=== PATIENT | male | born 1960 | race Caucasian/White ===

== ENCOUNTER 2021-05-27 00:43 | Day surgery (SDC) | payer OTHER, SELFPAY ==
[2021-05-20 08:57] VITALS: BMI 22.8
[2021-05-27 08:55] VITALS: BP 111/82; PULSE 90; RESP 18; TEMP 37.2; O2SAT 99; BMI 22.6
--- NOTE | 2021-05-27 09:11 | P.PNAN_ITS ---
Anes - Initial Pre Proc Eval Procedure: Operation Date: 05/27/21 10:00 Proposed Procedures p Screening Colonoscopy - Edward Martin MD Date/Time: 05/27/21 09:11 Surgeon: Edward Martin MD Pre Op Diagnosis: neoplasm screening Patient Data Age: 60 Gender: M Height: 1.7 m Weight: 66 kg Allergies Allergy/AdvReac Type Severity Reaction Status Date / Time No Known Allergies Allergy Verified 05/27/21 09:10 Home Medications Medication Instructions Recorded Confirmed Type No Home Medications 03/28/21 05/27/21 History Patient hx anesthesia problems: none Family hx anesthesia problems: none Results Review: All pre-operative results and documents have been reviewed as part of the pre-operative evaluation. [facility] Past Medical History Medical History (Updated 04/28/21 @ 12:57 by Prasad Ballard MD) COVID-19 Hearing loss Family History Family History Father Diabetes mellitus Acute myocardial infarction Family history of premature coronary heart disease Sibling Family history of psoriasis Family history of premature coronary heart disease Mother Family history of rheumatoid arthritis Patient's mother is , Onset Age: 73 Other Family history of heart disease in male family member before age 55 Social History Social History Smoking status: Never smoker Alcohol intake: current Drinks per week: 6 Alcohol use details: on weekend 6 beers Substance use: never Substance use type: does not use Living arrangements: with family Spiritual care concerns: No Anes - Eval Final PreProcedure Day of Procedure 05/27/21 09:11 Patient weight: normal Heart: regular rate and rhythm Lungs: clear to auscultation Airway: Mallampati scale class II Neurological: alert and oriented Last oral intake: >/= 8 hours ASA classification: I Emergent: no Anesthetic plan: proceed Anesthesia type and monitoring: general GIVS and standard monitoring Results Review: All pre-operative results and documents have been reviewed as part of the pre-operative evaluation. Informed Consent: The patient's anesthetic plan and its attendant risks and benefits were discussed with the patient/family/POA. Questions were solicited and answers provided to the satisfaction of the patient/family/POA.
[2021-05-27] MEDS: LACTATED RINGERS 1,000 ML 150 ML IV CONT (09:22)
--- NOTE | 2021-05-27 10:00 | WPDGICN ---
Assessment and Plan Assessment and plan (1) Irritable bowel syndrome with diarrhea: Code(s): K58.0 - Irritable bowel syndrome with diarrhea Status: Acute Assessment and Plan: Patient gives a long history of irregular bowel habits. Suspect this could be irritable bowel syndrome. Although dietary intolerance cannot be excluded. Agree with a trial of limiting her avoiding caffeine. I would suggest fiber supplementation such as FiberCon or Metamucil on a daily basis. (2) Encounter for screening colonoscopy: Code(s): Z12.11 - Encounter for screening for malignant neoplasm of colon Status: Acute Assessment and Plan: Patient presents for screening colonoscopy as it appears is been since 2007 since last exam. There is a questionable history of colon polyps in the past that I cannot confirm. Further recommendations will be given after screening colonoscopy. GI Consult Note Consult date/time: 05/27/21 10:00 HPI: Delvin Alonso is a 60 year old male Presents for screening colonoscopy. Patient reports a long history of irregular bowel movements. He apparently has watery stools that her sometimes putting like and sometimes like string beans. He denies any bleeding. He states he has poor control. Apparently his poor control is more noticeable when traveling because of inability to get to a restroom quick enough. He states he drinks quite a bit of coffee. Altering the amount of coffee seems to have improved to a small degree but has not relieved his symptoms. He was referred for colonoscopy because it has been since 2007 since last exam. At which time he was found to have hemorrhoids. Patient does have a significant concern about underlying cancer. He denies any bleeding however. His family history is noncontributory. Review of Systems Review of Systems: All systems reviewed & are unremarkable except as noted in HPI and below [facility] Past Medical History Medical History (Updated 05/27/21 @ 10:01 by Edward Martin MD) COVID-19 Hearing loss Family History Family History Father Diabetes mellitus Acute myocardial infarction Family history of premature coronary heart disease Sibling Family history of psoriasis Family history of premature coronary heart disease Mother Family history of rheumatoid arthritis Patient's mother is , Onset Age: 73 Other Family history of heart disease in male family member before age 55 Social History Social History Smoking status: Never smoker Alcohol intake: current Drinks per week: 6 Alcohol use details: on weekend 6 beers Substance use: never Substance use type: does not use Living arrangements: with family Spiritual care concerns: No Meds Home Medications and Allergies Home Medications Medication Instructions Recorded Confirmed Type No Home Medications 03/28/21 05/27/21 History Allergies Allergy/AdvReac Type Severity Reaction Status Date / Time No Known Allergies Allergy Verified 05/27/21 09:10 Vital Signs Vital Signs - 24 hr 05/27/21 08:55 Temperature 98.9 F Pulse Rate 90 Respiratory Rate 18 Blood Pressure 111/82 Pulse Oximetry 99 Exam Narrative: Physical exam reveals patient to be alert. Vital signs stable. HEENT exam is unremarkable. Patient is anicteric. Lungs are clear to auscultation and to percussion. Heart is without murmur or extra sounds. Abdominal exam bowel sounds present soft nontender with no organomegaly. Digital external rectal exam normal.
[2021-05-27 10:39] VITALS: BP 102/71; PULSE 66; RESP 26; O2SAT 97
[2021-05-27 10:49] VITALS: BP 102/60; PULSE 67; RESP 26; O2SAT 99
[2021-05-27 10:59] VITALS: BP 112/73; PULSE 61; RESP 17; O2SAT 99
== END 2021-05-27 11:11 | disposition home or self-care (01) ==
PROVIDERS: PCP Family Medicine; Visit Provider Internal Medicine Gastroenterology
PROC: 0DJD8ZZ Inspection of Lower Intestinal Tract, Via Natural or Artificial Opening Endoscopic (ICD-10-PCS; CPT 45378; principal; 2021-05-27 10:00)
DX: Z12.11 Encounter for screening for malignant neoplasm of colon (principal); D12.4 Benign neoplasm of descending colon; R19.5 Other fecal abnormalities; K58.9 Irritable bowel syndrome, unspecified; K64.8 Other hemorrhoids; K58.0 Irritable bowel syndrome with diarrhea; Z86.16 Personal history of COVID-19; H91.90 Unspecified hearing loss, unspecified ear
CPT/HCPCS: 45385; 88305; J2704; J7120

== ENCOUNTER 2021-11-15 19:45 | Emergency (ER) | payer OTHER, SELFPAY ==
--- NOTE | ~2021-11-15 | CT_ITS ---
EXAMINATION: CT abdomen pelvis wo con DATE: 11/15/2021 20:51 INDICATION: left flank pain, n/v TECHNIQUE: Computed tomography (CT) of the abdomen and pelvis was performed without intravenous contr ast. Automated exposure control and iterative reconstruction technique were employed. The dose-length product was 252.41 mGy-cm. COMPARISON: None FINDINGS: Lower thorax: 3 mm left lower lobe pulmonary nodule. Bibasilar atelectasis. Liver: There is Biliary/Gallbladder: Gallbladder is normal. No bile duct dilation. Pancreas: No mass or duct dilation. Spleen: Splenosis. Adrenals:No mass. Kidneys: No mass, stone, or hydronephrosis. GI tract: No small or large bowel dilation. Normal appendix. Mesentery/Peritoneum: No ascites, mass, or free air. Retroperitoneum: No mass. Pelvis: Pelvic organs are within normal limits. Soft Tissues: Soft tissues and body wall unremarkable. Bones: No acute osseous finding. IMPRESSION: No acute abdominopelvic process. 3 mm left lower lobe pulmonary nodule. If the patient is low risk fo r lung cancer, no follow-up is needed. If the patient is high risk (i.e., history of smoking or asbes tos or radiation exposure), follow-up noncontrast low-dose chest CT is recommended at 12 months. Reviewed, dictated and finalized at location K. IMPRESSION: No acute abdominopelvic process. 3 mm left lower lobe pulmonary nodule. If the patient is low risk for lung cancer, no follow-up is needed. If the patient is high risk (i.e., history of smoking or asbestos or radiation exposure), follow- up noncontrast low-dose chest CT is recommended at 12 months.
--- NOTE | ~2021-11-15 | CT_ITS ---
EXAMINATION: CTA chest abdomen pelvis DATE: 11/16/2021 08:14 CDT INDICATION: Intractable back pain. Concern for dissection. TECHNIQUE: Computed tomography (CT) of the chest, abdomen, and pelvis was performed with 100 cc Omnip aque 300 intravenous contrast. The dose-length product was 358.84 mGy-cm. Automated exposure control and iterative reconstruction technique were employed. COMPARISON: CT dated 11/15/2021 FINDINGS: CHEST CT: There is an aberrant right subclavian artery. Study is technically adequate without evidence for pulm onary embolism. Heart size normal. No significant pleural or pericardial effusion. No endobronchial l esions. No evidence for aortic aneurysm or dissection. There is a 5.5 mm perifissural nodule on the l eft, image 51, likely benign lymph node. No endobronchial lesions. Dependent atelectasis. No focal ai rspace consolidation. No pneumothorax. ABDOMEN/PELVIS CT: No evidence for aortic aneurysm or dissection. There is stenosis of the celiac trunk. The SMA and maria de jesus al arteries are widely patent. The liver, spleen, pancreas, adrenal glands and kidneys are unremarkab le. There is a 4 cm mass medial to the spleen which is isodense to the spleen, likely an accessory sp lenule. There is a second mass isodense to the spleen just superior to the left kidney along the less er curvature of the stomach, also likely an accessory splenule. Gallbladder is present. No free air o r free fluid. No acute osseous abnormality. IMPRESSION: 1. 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 Correlate for possi ble median arcuate syndrome. 2: Left perifissural nodule measuring 5.5 mm, likely benign. Follow-up low dose CT chest in 12 months recommended. 3: Reviewed, dictated and finalized at location B. IMPRESSION: 1. 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 Correlate for possible median arcuate syndrome. 2: Left perifissural nodule measuring 5.5 mm, likely benign. Follow-up low dose CT chest in 12 months recommended. 3:
[2021-11-15 20:11] VITALS: BP 145/77; PULSE 64; RESP 18; TEMP 36.6; O2SAT 100
--- NOTE | 2021-11-15 20:31 | ED.ABDPAIN ---
HPI - Abdominal Pain General Chief Complaint: Abdominal Pain Stated Complaint: left flank pain Time Seen by Provider: 11/15/21 20:22 History of Present Illness HPI narrative: Patient is a 61-year-old male here for evaluation of left flank pain today. Patient states the pain is intermittent in nature, is severe, and makes it difficult to find a comfortable position. Most comfortable position is leaning forward. States that he was at work when the pain came on, and it came on after eating. Denies history of previous similar pain. Patient additionally had 2 episodes of nausea and vomiting nonbloody/nonbilious emesis. No fevers, chills, abdominal pain, constipation. Patient states that he has chronic diarrhea that he has had multiple colonoscopies in the past for. Related Data Allergies Allergy/AdvReac Type Severity Reaction Status Date / Time No Known Allergies Allergy Verified 11/15/21 20:43 Review of Systems Review of Systems: Gen.: Denies fevers or chills Eyes: Denies eye pain or visual change ENT: Denies congestion Respiratory: Denies shortness of breath or cough CV: Denies chest pain or palpitations GI: Reports nausea and vomiting denies burning, urgency, frequency or hematuria Musculoskeletal: Reports back pain Neuro: Denies numbness, tingling, weakness or focal weakness Skin: Denies rash Except as documented, all other systems reviewed and negative [facility] Past Medical History Medical History COVID-19 Hearing loss Family History Family History Father Diabetes mellitus Acute myocardial infarction Family history of premature coronary heart disease Sibling Family history of psoriasis Family history of premature coronary heart disease Mother Family history of rheumatoid arthritis Patient's mother is , Onset Age: 73 Other Family history of heart disease in male family member before age 55 Social History Social History Smoking status: Never smoker Alcohol intake: current Drinks per week: 6 Alcohol use details: on weekend 6 beers Substance use: never Substance use type: does not use Spiritual care concerns: No Exam Narrative: APPEARANCE: No acute distress, nontoxic, resting in bed EYES: EOMI HEENT: Normocephalic, atraumatic, OMM RESPIRATORY: No respiratory distress Clear to auscultation bilaterally with no rhonchi wheezing or rales. CARDIOVASCULAR: Regular rate and rhythm without murmurs rubs or gallops. ABDOMINAL: Soft, nontender, nondistended, no rebound or guarding MUSCULOSKELETAl: No CVA tenderness. Moves all extremities. No clubbing, cyanosis or edema. NEURO: Awake and alert. Following commands, speech normal, no focal deficits SKIN: Warm, dry. No rashes lesions or abrasions PSYCHIATRIC: Normal affect/mood Course Vital Signs Vital signs: Vital Signs Temperature 97.8 F 11/15/21 20:11 Pulse Rate 64 11/15/21 20:11 Respiratory Rate 18 11/15/21 20:11 Blood Pressure 145/77 H 11/15/21 20:11 Pulse Oximetry 100 11/15/21 20:11 Oxygen Delivery Room Air 11/15/21 20:11 Temperature 97.8 F 11/15/21 20:11 Pulse Rate 64 11/16/21 01:15 Respiratory Rate 18 11/16/21 01:15 Blood Pressure 124/74 11/16/21 01:15 Pulse Oximetry 100 11/16/21 01:15 Oxygen Delivery Room Air 11/15/21 20:11 MDM - Abdominal Pain MDM Narrative Medical decision making narrative: Patient is a 61-year-old male here for evaluation of left sided flank pain, nausea and vomiting today. Patient initially hypertensive, likely due to pain, vital signs normal at time of discharge. Exam without CVA tenderness. Initial differential diagnosis include pyelonephritis, nephrolithiasis, gastroenteritis, low back sprain or strain. Patient's pain was refractory to Toradol, lidocaine patches and cycloben
[2021-11-15] MEDS: ONDANSETRON INJ 4 MG/2 ML VIAL IV PUSH (20:43)
[2021-11-15] MEDS: KETOROLAC 15 MG/ML VIAL (*BKC) IV PUSH (20:43)
[2021-11-15 20:47] LABS: Appearance Urine Clear (Clear); Bilirubin Urine Negative (Negative); Blood Urine Negative (Negative); Color Urine Yellow (Yellow); Glucose Urine UA Negative (Negative); Ketones Urine 1+ mg/dL (Negative); Leukocyte Esterase Ur Negative LEU/UL (Negative); Nitrate Urine Negative (Negative); Protein Urine Trace mg/dL (Negative); Specific Grav Ur >= 1.030 (1.001-1.035); Urobilinogen Urine 0.2 mg/dL (<2.0); pH Urine 5.5 (5.0-9.0)
[2021-11-15 20:47] LABS: Basophils Percent Auto 0.6 % (0.2-1.2); Eosinophils Percent Auto 0.4 % (0-4.4); Hematocrit 43.4 % (42.0-52.0); Hemoglobin 14.2 g/dL (14.0-18.0); Immature Granulocyte Absolute 0.03 K/mm3 (0.00-0.031); Immature Granulocyte Percent A 0.4 % (0-0.5); Lymphocytes Absolute Auto 0.76 K/mm3 (0.9-3.2); Lymphocytes Percent Auto 10.5 % (18.3-44.2); Mean Corpuscular HGB Conc 32.7 g/dl (32-36); Mean Corpuscular Hemoglobin 30.4 pg (26-34); Mean Corpuscular Volume 92.9 fl (80-100); Mean Platelet Volume 9.4 fl (7.4-10.4); Monocytes Absolute Auto 0.2 K/mm3 (0.1-0.6); Monocytes Percent Auto 3.2 % (2.6-8.5); Neutrophils Absolute Auto 6.2 K/mm3 (1.3-6.7); Neutrophils Percent Auto 84.9 % (45.5-73.1); Platelet Count Result 216 k/mm3 (150-375); Red Blood Count 4.67 M/mm3 (4.6-6.20); Red Cell Distribution Width 13.9 % (11.5-14.5); White Blood Count 7.2 K/mm3 (4.5-10.0)
[2021-11-15 20:54] LABS: Mucus Urine Rare /lpf; RBC Urine 0-2 /hpf (0-2); WBC Urine 0-3 /hpf
[2021-11-15 20:57] LABS: Alanine Aminotransferase 21 U/L (6-50); Albumin Level 4.6 g/dL (3.5-5.1); Alkaline Phosphatase 47 U/L (38-126); Anion Gap 9 mmol/L (8-16); Aspartate Amino Transferase 27 U/L (17-59); Bilirubin,Total 0.6 mg/dL (0.2-1.3); Blood Urea Nitrogen 24 mg/dL (9-20); Carbon Dioxide 24 mmol/L (22-30); Chloride 105 mmol/L (98-107); Estimated CRCL calculation 53 ml/min; Estimated Glomerular Filt Rate > 60; Glucose 118 mg/dL (65-110); Potassium 4.1 mmol/L (3.4-5.0); Sodium 138 mmol/L (137-145)
[2021-11-15 21:05] LABS: Add Urine Microscopic? YES
[2021-11-15] MEDS: CYCLOBENZAPRINE HCL 10 MG TABLET PO (21:47)
[2021-11-15] MEDS: LIDOCAINE 5% PATCH 1 PATCH TRANSDERM (22:23)
--- NOTE | 2021-11-15 22:23 | PC.NURSE ---
patient rates pain 8/10 at this time
[2021-11-15 22:49] LABS: Lipase 139 U/L (23-300)
[2021-11-15] MEDS: MORPHINE SULFATE (*CRX) 4 MG/ML INJ IV PUSH (23:20)
[2021-11-15 23:23] VITALS: BP 133/89; PULSE 66; RESP 18; O2SAT 99
[2021-11-16 00:56] VITALS: BP 133/73; PULSE 60; RESP 18; O2SAT 98
[2021-11-16] MEDS: MORPHINE SULFATE (*CRX) 2 MG/ML INJ IV PUSH (00:57)
[2021-11-16 01:15] VITALS: BP 124/74; PULSE 64; RESP 18; O2SAT 100
== END 2021-11-16 01:17 | disposition home or self-care (01) ==
PROVIDERS: Physician Assistant; Emergency Provider Emergency Medicine; PCP Family Medicine
DX: I77.4 Celiac artery compression syndrome (principal); Z86.16 Personal history of COVID-19; R91.1 Solitary pulmonary nodule
CPT/HCPCS: 36415; 71275; 74174; 74176; 80053; 81001; 83690; 85025; 96374; 96375; 99284; A9270; J1885; J2270; J2405; Q9967